=== PATIENT | female | born 1945 | race Two or more races ===

== ENCOUNTER 2017-12-05 09:52 | Emergency (ER) | payer OTHER ==
[~2017-12-05] VITALS: Ht 162.6 cm; Wt 61.2 kg
[~2017-12-05 09:52] MED LIST: ACYCLOVIR800 MG; BACTRIM DS TAB1 EACH PO; BENADRYL ALLE12.5 MG; GENESUPP-5001 CAP; LISINOPRIL20 MG; LYRICA50 MG; OSEL75CA PO; PROMETHAZINE W118 ML PO; SEPTRA DS TABLE1 TAB PO; SYNTHROID137 MCG; SYNTHROID50 MCG; SYNTHROID75 MCG; URETRON D-S TAB1 TAB PO; [UNRECOGNIZED DRUG - OTHER]
[2017-12-05] MEDS ORDERED: GABAPENTIN600 MG (10:03)
== END 2017-12-05 11:31 | disposition home or self-care (01) ==
LOC: ER 09:52
DX: J20.9 Acute bronchitis, unspecified (principal)

== ENCOUNTER 2018-08-20 09:45 | Emergency (ER) | payer OTHER ==
[~2018-08-20] VITALS: Ht 160 cm; Wt 70.8 kg
[~2018-08-20 09:45] MED LIST changes: +GABAPENTIN600 MG
== END 2018-08-20 13:55 | disposition home or self-care (01) ==
LOC: ER 09:45
DX: L50.8 Other urticaria (principal)

== ENCOUNTER 2019-05-16 09:40 | Emergency (ER) | payer OTHER ==
[~2019-05-16] VITALS: Ht 162.6 cm; Wt 74.4 kg
== END 2019-05-16 11:03 | disposition home or self-care (01) ==
LOC: ER 09:40
DX: L20.89 Other atopic dermatitis (principal)

== ENCOUNTER 2021-07-29 11:44 | Outpatient (CLI) | payer OTHER | END 2021-07-29 11:45 | disposition home or self-care (01) | LOC: LAB 11:44 | PROVIDERS: ATTEND Radiology Diagnostic Radiology | DX: C50.411 Malignant neoplasm of upper-outer quadrant of right female breast (principal) ==

== ENCOUNTER 2021-07-31 07:04 | Outpatient (CLI) | payer OTHER | END 2021-07-31 07:14 | disposition home or self-care (01) | LOC: TOM 07:04 | PROVIDERS: ATTEND Internal Medicine Hematology & Oncology | DX: C50.411 Malignant neoplasm of upper-outer quadrant of right female breast (principal); Z80.3 Family history of malignant neoplasm of breast; Z85.3 Personal history of malignant neoplasm of breast | CPT/HCPCS: 71260; 74177; Q9965 ==

== ENCOUNTER 2021-11-04 08:44 | Outpatient (CLI) | payer OTHER | END 2021-11-04 08:45 | disposition home or self-care (01) | LOC: MRI 08:44 | DX: D43.2 Neoplasm of uncertain behavior of brain, unspecified (principal) | CPT/HCPCS: 70553; Q9965; 70551 ==

== ENCOUNTER 2022-02-07 13:16 | Emergency (ER) | payer OTHER ==
[~2022-02-07] VITALS: Ht 162.6 cm; Wt 65.8 kg
== END 2022-02-07 16:19 ==
LOC: ER 13:16
DX: M62.838 Other muscle spasm (principal); M54.2 Cervicalgia; I10 Essential (primary) hypertension; E03.9 Hypothyroidism, unspecified; Z85.3 Personal history of malignant neoplasm of breast

== ENCOUNTER → 2022-05-13 | Outpatient (CLI) | payer OTHER | END | disposition home or self-care (01) | LOC: NUCLEAR 07:00 | PROVIDERS: ATTEND Internal Medicine Hematology & Oncology | DX: C50.411 Malignant neoplasm of upper-outer quadrant of right female breast (principal); Z85.3 Personal history of malignant neoplasm of breast; D51.3 Other dietary vitamin B12 deficiency anemia; A00-B99 Certain infectious and parasitic diseases; E03.8 Other specified hypothyroidism; E55.9 Vitamin D deficiency, unspecified; I73.9 Peripheral vascular disease, unspecified; M81.0 Age-related osteoporosis without current pathological fracture; H10.213 Acute toxic conjunctivitis, bilateral; J20.8 Acute bronchitis due to other specified organisms; Z80.3 Family history of malignant neoplasm of breast | CPT/HCPCS: 78816; A9552 ==

== ENCOUNTER 2022-07-26 09:08 | Emergency (ER) | payer OTHER ==
[~2022-07-26] VITALS: Ht 162.6 cm; Wt 65.8 kg
[2022-07-26] MEDS ORDERED: LIPITOR20 MG (09:44)
== END 2022-07-26 10:17 | disposition home or self-care (01) ==
LOC: ER 09:08
DX: H10.32 Unspecified acute conjunctivitis, left eye (principal)

== ENCOUNTER 2023-10-27 12:10 | Emergency (ER) | payer OTHER ==
[~2023-10-27] VITALS: Ht 165.1 cm; Wt 68.0 kg
[~2023-10-27 12:10] MED LIST changes: +LIPITOR20 MG
[2023-10-27 14:28] LABS: HEMATOCRIT 37.9 % (36.0-45.00); HEMOGLOBIN 13.2 g/dL (12.0-15.00); MEAN CELL VOLUME 92.6 fL (80.00-100.00); MEAN CORPUSCULAR HEMOGLOBIN 32.3 pg (27.00-32.0); MEAN CORPUSCULAR HGB CONC 34.8 g/dl (32.0-36.0); PLATELET COUNT 456 K/uL (150-450); RED BLOOD COUNT 4.09 M/uL (4.00-6.00); RED CELL DISTRIBUTION WIDTH 13.3 % (11.5-14.5)
[2023-10-27 15:23] LABS: ALBUMIN 3.6 gm/dL (3.4-5.0); BILIRUBIN TOTAL 0.5 mg/dL (0.3-1.2); CALCIUM 9.5 mg/dL (8.5-10.1); CREATININE SERUM 1.44 mg/dL (0.55-1.02); GFR 35.11; GLOBULINA 4.4 G/DL (2.4-3.5); POTASSIUM 4.58 mEq/L (3.5-5.1)
[2023-10-27] MEDS ORDERED: LIDOCAINE HCL 1% 10ML VIAL ONE (15:56)
== END 2023-10-27 16:40 | disposition home or self-care (01) ==
LOC: ER 12:11
PROVIDERS: General Practice
DX: S01.81XA Laceration without foreign body of other part of head, initial encounter (principal); W19.XXXA Unspecified fall, initial encounter; Y93.89 Activity, other specified; Y92.89 Other specified places as the place of occurrence of the external cause; Y99.8 Other external cause status; I10 Essential (primary) hypertension; E11.9 Type 2 diabetes mellitus without complications

== ENCOUNTER 2024-10-17 08:45 | Emergency (ER) | payer OTHER ==
[~2024-10-17] VITALS: Ht 157.5 cm; Wt 64.4 kg
[2024-10-17] MEDS ORDERED: NEURONTIN300 MG PO (09:13)
[2024-10-17] MEDS ORDERED: KETOROLAC TROMETHAMINE 60 MG VIAL IM ONE ×2 (09:15→09:19)
== END 2024-10-17 09:40 | disposition home or self-care (01) ==
LOC: ER 08:45
DX: M54.9 Dorsalgia, unspecified (principal); I10 Essential (primary) hypertension; E03.8 Other specified hypothyroidism
CPT/HCPCS: 96372; 99282; J1885